=== PATIENT | female | born 1995 | race Caucasian/White ===

== ENCOUNTER 2019-03-02 22:05 | Emergency (ER) | payer SELFPAY ==
[~2019-03-02] VITALS: Ht 157.5 cm; Wt 80.2 kg
[2019-03-02 22:07] VITALS: Ht 157.5 cm; Wt 80.2 kg
[2019-03-03] MEDS ORDERED: KETOROLAC 30 MG INJ IM STA (01:23)
[2019-03-03] MEDS ORDERED: IBUP-1542 PO (01:24)
--- NOTE | 2019-03-03 01:31 | ERD ---
ER Documentation Chief Complaint Chief Complaint PELVIC PAIN X'S 3 DAYS HPI This is a 23-year-old female with no sniffing past medical history presents to the ED complaining of left 8/10 pelvic pain x3 days. Patient states pain has been progressively worsening, was present all day today. Pain migrates to her right lower quadrant. She also endorses some left flank pain and has been having some dysuria as well. Denies any hematuria. Denies any fevers or chills. Denies any history of similar pain. Denies any nausea or vomiting. She states she has some relief with Advil. Her last menstrual cycle was February 11, 2019. She states her periods are painful, but regular. ROS All systems reviewed and are negative except as per history of present illness. Medications Home Meds Active Scripts Ibuprofen* (Motrin*) 600 Mg Tab, 600 MG PO Q6H PRN for PAIN AND OR ELEVATED TEMP, #30 TAB Prov:SILAYANXAVI BRYANTC 03/03/19 Allergies Allergies: Coded Allergies: No Known Allergy (Unverified , 03/02/19) PMhx/Soc Medical and Surgical Hx: pt denies Medical Hx, pt denies Surgical Hx Hx Alcohol Use: No Hx Substance Use: No Hx Tobacco Use: No Physical Exam Vitals Vital Signs Date Temp Pulse Resp B/P (MAP) Pulse Ox O2 O2 Flow FiO2 Time Delivery Rate 03/02/19 97.0 82 18 109/57 99 22:07 (74) Physical Exam Const: No acute distress Head: Atraumatic Eyes: Normal Conjunctiva ENT: Normal External Ears, Nose and Mouth. Neck: Full range of motion. No meningismus. Resp: Clear to auscultation bilaterally Cardio: Regular rate and rhythm, no murmurs Abd: Soft, + mid suprapubic tenderness to palpation. Negative McBurney's. Negative Mora's., non distended. Normal bowel sounds Skin: No petechiae or rashes Back: No midline. + Mild left CVA tenderness palpation. Ext: No cyanosis, or edema Neur: Awake and alert Psych: Normal Mood and Affect Results 24 hrs Laboratory Tests Test 03/03/19 00:30 03/03/19 00:31 Urine Color STRAW Urine Clarity CLEAR Urine pH 6.0 Urine Specific [place] 1.003 Urine Ketones NEGATIVE mg/dL Urine Nitrite NEGATIVE mg/dL Urine Bilirubin NEGATIVE mg/dL Urine Urobilinogen NEGATIVE mg/dL Urine Leukocyte Esterase NEGATIVE Shea/ul Urine Microscopic RBC 0 /HPF Urine Microscopic WBC 0 /HPF Urine Hemoglobin 1+ mg/dL Urine Glucose NEGATIVE mg/dL Urine Total Protein NEGATIVE mg/dl Urine Test NEGATIVE POC Beta HCG, Qualitative NEGATIVE Current Medications Medications Dose Sig/Lenora Start Time Status Last (Trade) Ordered Route PRN Stop Time Admin Dose Reason Admin Ketorolac 30 mg ONCE STAT 03/03/19 DC Tromethamine IM 01:23 (Toradol) 03/03/19 01:24 Procedures/MDM LABS & DIAGNOSTIC IMAGING: Urine: no e/o acute infection or hematuria Hcg: neg PROCEDURE: XR Abdomen. CLINICAL INDICATION: Left-sided flank pain TECHNIQUE: Single AP view of the abdomen. COMPARISON: None available. FINDINGS: No evidence of air-fluid level or distended bowel loops to suggest small bowel obstruction. Moderate constipation. No definite radiopaque calculi are seen in the distribution of the kidneys, ureters, or urinary bladder. No soft tissue abnormalities. No radiopaque foreign bodies. IMPRESSION: No radiographic evidence of small bowel obstruction. Moderate constipation. ED COURSE: The patient was given IM Toradol The medication was well tolerated and the patient had market improvement in symptoms. The patient remained stable throughout ED course. MEDICAL DECISION MAKIN-year-old female presents with pelvic pain. She is afebrile here. Vital signs are stable. Her UA is essentially unremarkable, and KUB was also unremarkable aside from some constipation. She is in the middle of her menstrual cycle therefore I believe her symptoms are more gynecologic in origin and related to mittelschmerz. Her pain improved with Toradol. There is no evidence of nephrolithiasis, pyelonephritis, obstruction, appendicitis, or any other emergent issue. I have low suspicion for ruptured ovarian cyst or ovarian torsion. Patient was discharged home with a prescription for ibuprofen and told to increase her water intake. Recommended follow-up with RELIGIOUS EDUCATION TEACHER or PCP sometime this week. Strict precautions were discussed. PRESCRIPTIONS: Ibuprofen SPECIALIST FOLLOW UP RECOMMENDED: None Patient has been advised to follow up with primary care in 1-2 days. Departure Diagnosis: Primary Impression: Pelvic pain Additional Impression: Constipation Constipation type: unspecified constipation type Qualified Codes: K59.00 - Constipation, unspecified Condition: Stable Patient Instructions: Mid-Cycle Pain (Mittelschmerz) Referrals: [facility] [id number] [facility] [address] [place] [address] OFFICE FAX , [facility] [address] [place] [address] [address] [address] [place] [address] [address] [place], [facility] [address] [facility] [address], [facility] [address] [address] [facility] [address] [place] [address] [facility] [address] [place] [address] [phone] [facility] [id number] - [address] ROCHE JESUS [address], [facility] [address] [address] [place], [facility] [address] [facility]. [address], [place] [address] [address] [place] [facility] [address] [place], [place] [id number] Additional Instructions: Call your primary care doctor TOMORROW for an appointment during the next 2-4 days and bring all the information and medications prescribed. If the symptoms get worse and your provider is unavailable, return to the Emergency Department immediately. XAVI SPENCER PA-C Mar 03, 2019 01:31
[2019-03-03 01:49] VITALS: BP 110/66; PULSE 68; RESP 18
== END 2019-03-03 01:50 | disposition home or self-care (01) ==
LOC: FTE 22:05
DX: K59.00 Constipation, unspecified (principal)
CPT/HCPCS: 74018; 81001; 81025; 84703; 96372; 99284; J1885